=== PATIENT | male | born 1990 | race Caucasian/White ===

== ENCOUNTER 2017-08-30 07:23 | Emergency (ER) | payer BC ==
[2017-08-30] MEDS ORDERED: Morphine 2 MG/ML Syringe IVPUSH ONE (07:50)
[2017-08-30] MEDS ORDERED: Ketorolac 30 MG/ML SDV IVPUSH ONE (07:50)
[2017-08-30] MEDS ORDERED: Piperacillin/Tazobactam 3.375 GM in Sodium Chloride 0.9% 50 ML IV ONE (07:51)
[2017-08-30] MEDS ORDERED: Sodium Chloride 0.9% 2.5 ML Syringe FLUSH PRN (07:51)
[2017-08-30] MEDS ORDERED: Sodium Chloride 0.9% 10 ML Syringe FLUSH PRN (07:51)
--- NOTE | 2017-08-30 07:55 | EDM.PDOC ---
ED HPI GENERAL MEDICAL PROBLEM - General Chief Complaint: Back Pain or Injury Stated Complaint: LOWER BACK PAIN Time Seen by Provider: 08/30/17 07:31 - History of Present Illness INITIAL COMMENTS - FREE TEXT/NARRATIVE: HISTORY AND PHYSICAL: History of present illness: The patient is a 26-year-old male with no stated medical problems who presents with a 2 day history of fullness and pain at his tailbone area. The patient denies any trauma to the area and has not had any drainage has been having no bowel or bladder disturbances. He's had no systemic complaints of fever chills abdominal pain or testicular pain. Patient tells me that in the past he had a "cyst" in that same area but it went away without seeking medical treatment and he's never had problems since that time until this episode. He's eating and drinking normally and does not have a local provider. He says he's been using [id number] medications for pain and he presents more for the pain and pain management today. Review of systems: As per history of present illness and below otherwise all systems reviewed and negative. Past medical history: As per history of present illness and as reviewed below otherwise noncontributory. Surgical history: As per history of present illness and as reviewed below otherwise noncontributory. Social history: No reported history of drug or alcohol abuse. Family history: As per history of present illness and as reviewed below otherwise noncontributory. Physical exam: General: Well-developed well-nourished overweight male who is uncomfortable sitting in the ED and prefers to stand or lay on his abdomen as he says it's excruciatingly painful to sit on his butt. He is nontoxic appearing HEENT: Atraumatic, normocephalic, negative for conjunctival pallor or scleral icterus, mucous membranes moist, throat clear, neck supple, nontender, trachea midline. Lungs: Clear to auscultation, breath sounds equal bilaterally, chest nontender. Heart: S1S2, regular rate and rhythm no overt murmurs Abdomen: Soft, nondistended, nontender. NABS Pelvis: Stable nontender. Genitourinary: Deferred. Rectal: See below Extremities: Atraumatic, negative for cords or calf pain. Neurovascular unremarkable. Neuro: Awake, alert, oriented. Cranial nerves II through XII unremarkable. Cerebellum unremarkable. Motor and sensory unremarkable throughout. Exam nonfocal. Back: There are no midline step-offs tenderness defects of the cervical thoracic or lumbar spine and no soft tissue swelling or paraspinal tenderness is appreciated. As the distal sacrum there is a 10 x 10 area of bilateral erythema and warmth that originates from the distal sacrum and coccyx area and extends bilaterally. Does extend toward the anus but does not seem to violate the anal verge and the patient has good rectal tone. There is mostly induration in this area and no gross fluctuance. There is discrete tenderness in this region. Diagnostics: CBC CMP blood cultures Therapeutics: Toradol Zosyn 0900: This case was discussed with our surgeon Dr. Arguelles. He is currently finishing another case in the operating room and will come and evaluate the patient. He is aware of the WBC count and the physical findings. He would like me to refrain from doing any imaging until he sees the patient. His also made aware of this plan. 0930: Dr. Arguelles is here seeing the patient and he will do a formal consult. He is aware of the white cell count and has examined the patient himself and would like the patient to be placed on Keflex 500 mg every 6 hours for 10 days, pain medication, [id number] stool softeners and he will see the patient in his clinic in 7-10 days. At that point he can reevaluate the patient for formal excision as indicated. The patient is aware of this plan and is comfortable with it. He was also advised that if he starts having documented fevers or gets worse that he should return to the ER. I've given the patient a thermometer so that he can check his temperature at home if he feels feverish or chilly. Impression: Pilonidal cyst/abscess/cellulitis Definitive disposition and diagnosis as appropriate pending reevaluation and review of above. Lower Back Pain Score (Numeric/FACES): 10 - Related Data Allergies Allergy/AdvReac Type Severity Reaction Status Date / Time sulfamethoxazole Allergy Hives Verified 08/30/17 07:33 [From Bactrim] trimethoprim [From Bactrim] Allergy Hives Verified 08/30/17 07:33 Home Meds: Home Meds . [No Known Home Meds] 07/02/16 [History] Past Medical History - Past Health History Medical/Surgical History: Denies Medical/Surgical History Cardiovascular History: Reports: None Respiratory History: Reports: None Gastrointestinal History: Reports: None Genitourinary History: Reports: None Neurological History: Reports: None Endocrine/Metabolic History: Reports: None Hematologic History: Reports: None Immunologic History: Reports: None Dermatologic History: Reports: None - Infectious Disease History Infectious Disease History: Reports: None - Past Surgical History Cardiovascular Surgical History: Reports: None Musculoskeletal Surgical History: Reports: Other (See Below) Dermatological Surgical History: Reports: Skin Graft Social & Family History - Family History Family Medical History: Noncontributory - Tobacco Use Smoking Status *Q: Current Every Day Smoker Years of Tobacco use: 10 Packs/Tins Daily: 1.5 - Alcohol Use Days Per Week of Alcohol Use: 1 Number of Drinks Per Day: 6 Total Drinks Per Week: 6 - Recreational Drug Use Recreational Drug Use: Yes Drug Use in Last 12 Months: Yes Recreational Drug Type: Reports: Marijuana/Hashish Recreational Drug Use Frequency: Socially ED ROS GENERAL - Review of Systems Review Of Systems: ROS reveals no pertinent complaints other than HPI. ED EXAM, GENERAL - Physical Exam Exam: See Below (See dictation) Course - Vital Signs Last Recorded V/S: Last Vital Signs Temp 36.2 C 08/30/17 07:29 Pulse 78 08/30/17 09:21 Resp 16 08/30/17 09:21 BP 113/68 08/30/17 09:21 Pulse Ox 98 08/30/17 09:21 - Orders/Labs/Meds Orders: Active Orders 24 hr Category Date Time Status Notify Provider Consults [RC] ASDIRECTED Care 08/30/17 09:36 Ordered Consult to Physician [CONS] Stat Cons 08/30/17 09:36 Ordered CULTURE BLOOD [BC] Stat Lab 08/30/17 08:10 Received CULTURE BLOOD [BC] Stat Lab 08/30/17 08:18 Received Sodium Chloride 0.9% [Saline Flush] Med 08/30/17 07:51 Active 10 ml FLUSH ASDIRECTED PRN Sodium Chloride 0.9% [Saline Flush] Med 08/30/17 07:51 Active 2.5 ml FLUSH ASDIRECTED PRN Blood Culture x2 Reflex Set [OM.PC] Stat Oth 08/30/17 07:55 Ordered Saline Lock Insert [OM.PC] Stat Oth 08/30/17 07:49 Ordered Medication Orders Sodium Chloride (Saline Flush) 10 ml FLUSH ASDIRECTED PRN PRN Reason: Keep Vein Open Last Admin: 08/30/17 08:13 Dose: 10 ml Sodium Chloride (Saline Flush) 2.5 ml FLUSH ASDIRECTED PRN PRN Reason: Keep Vein Open Last Admin: 08/30/17 08:13 Dose: 2.5 ml Labs: Laboratory Tests 08/30/17 08/30/17 Range/Units 08:10 08:10 WBC 20.09 H (4.0-11.0) K/uL RBC 4.64 (4.50-5.90) M/uL Hgb 13.7 (13.0-17.0) g/dL Hct 40.4 (38.0-50.0) % MCV 87.1 (80.0-98.0) fL MCH 29.5 (27.0-32.0) pg MCHC 33.9 (31.0-37.0) g/dL RDW Std Deviation 42.0 (28.0-62.0) fl RDW Coeff of Maik 13 (11.0-15.0) % Plt Count 157 (150-400) K/uL MPV 10.00 (7.40-12.00) fL Neut % (Auto) 76.0 (48.0-80.0) % Lymph % (Auto) 11.5 L (16.0-40.0) % [place] % (Auto) 11.6 (0.0-15.0) % Eos % (Auto) 0.7 (0.0-7.0) % Baso % (Auto) 0.2 (0.0-1.5) % Neut # (Auto) 15.3 H (1.4-5.7) K/uL Lymph # (Auto) 2.3 (0.6-2.4) K/uL [place] # (Auto) 2.3 H (0.0-0.8) K/uL Eos # (Auto) 0.1 (0.0-0.7) K/uL Baso # (Auto) 0.0 (0.0-0.1) K/uL Nucleated RBC % 0.0 /100WBC Nucleated RBCs # 0 K/uL Sodium 138 (136-146) mmol/L Potassium 4.2 (3.5-5.1) mmol/L Chloride 109 (98-110) mmol/L Carbon Dioxide 22 (21-31) mmol/L BUN 12 (6.0-23.0) mg/dL Creatinine 0.7 (0.6-1.5) mg/dL Est Cr Clr Drug Dosing 172.44 mL/min Estimated GFR (MDRD) > 60.0 ml/min Glucose 113 H (60-110) mg/dL Calcium 9.3 (8.8-10.8) mg/dL Total Bilirubin 0.3 (0.1-1.5) mg/dL AST 40 (5-40) IU/L ALT 51 (8-54) IU/L Alkaline Phosphatase 91 (40-150) Total Protein 7.2 (6.0-8.0) g/dL Albumin 4.0 (3.5-5.0) g/dL Globulin 3.2 (2.0-3.5) g/dL Albumin/Globulin Ratio 1.3 (1.3-2.8) Meds: Medications Generic Name Dose Route Start Last Admin Trade Name Freq PRN Reason Stop Dose Admin Sodium Chloride 10 ml 08/30/17 07:51 08/30/17 08:13 Saline Flush FLUSH 10 ml ASDIRECTED PRN Administration Keep Vein Open Sodium Chloride 2.5 ml 08/30/17 07:51 08/30/17 08:13 Saline Flush FLUSH 2.5 ml ASDIRECTED PRN Administration Keep Vein Open Discontinued Medications Generic Name Dose Route Start Last Admin Trade Name Freq PRN Reason Stop Dose Admin Piperacillin Sod/Tazobactam 50 mls @ 100 mls/hr 08/30/17 07:51 08/30/17 08:27 Sod 3.375 gm/ Sodium Chloride IV 08/30/17 08:20 100 mls/hr ONETIME ONE Administration Ketorolac Tromethamine 30 mg 08/30/17 07:50 08/30/17 08:13 Toradol IVPUSH 08/30/17 07:51 30 mg ONETIME ONE Administration Morphine Sulfate 4 mg 08/30/17 07:50 08/30/17 08:13 Morphine IVPUSH 08/30/17 07:51 4 mg ONETIME ONE Administration Departure - Departure Time of Disposition: 09:39 Disposition: Home, Self-Care 01 Condition: Good Clinical Impression: Infected pilonidal cyst - Discharge Information Referrals: PCP,None [Primary Care Provider] - Forms: ED Department Discharge Additional Instructions: The following information is given to patients seen in the emergency department who are being discharged to home. This information is to outline your options for follow-up care. We provide all patients seen in our emergency department with a follow-up referral. The need for follow-up, as well as the timing and circumstances, are variable depending upon the specifics of your emergency department visit. If you don't have a primary care physician on staff, we will provide you with a referral. We always advise you to contact your personal physician following an emergency department visit to inform them of the circumstance of the visit and for follow-up with them and/or the need for any referrals to a consulting specialist. The emergency department will also refer you to a specialist when appropriate. This referral assures that you have the opportunity for followup care with a specialist. All of these measure are taken in an effort to provide you with optimal care, which includes your followup. Under all circumstances we always encourage you to contact your private physician who remains a resource for coordinating your care. When calling for followup care, please make the office aware that this follow-up is from your recent emergency room visit. If for any reason you are refused follow-up, please contact the [facility] emergency department at and ask to speak to the emergency department charge nurse. [facility] Professional Building [address] [place] [id number] Please take all medications as prescribed and take [id number] Colace twice a day per the package directions and also start taking MiraLAX 1 dose every day to help improve constipation and the bowel movements. Remember that the pain medications you have been prescribed here will make you more constipated. You can also do [id number]-[id number] Tylenol or ibuprofen during the day as you cannot drive or go to work on the stronger pain meds. Please return to ER as needed and as you have been directed by Dr. Arguelles in the ER. - My Orders Last 24 Hours: My Active Orders 08/30/17 07:49 Saline Lock Insert [OM.PC] Stat 08/30/17 07:51 Sodium Chloride 0.9% [Saline Flush] 10 ml FLUSH ASDIRECTED PRN Sodium Chloride 0.9% [Saline Flush] 2.5 ml FLUSH ASDIRECTED PRN 08/30/17 07:55 Blood Culture x2 Reflex Set [OM.PC] Stat 08/30/17 08:10 CULTURE BLOOD [BC] Stat 08/30/17 08:18 CULTURE BLOOD [BC] Stat 08/30/17 09:36 Notify Provider Consults [RC] ASDIRECTED Consult to Physician [CONS] Stat - Assessment/Plan Last 24 Hours: My Active Orders 08/30/17 07:49 Saline Lock Insert [OM.PC] Stat 08/30/17 07:51 Sodium Chloride 0.9% [Saline Flush] 10 ml FLUSH ASDIRECTED PRN Sodium Chloride 0.9% [Saline Flush] 2.5 ml FLUSH ASDIRECTED PRN 08/30/17 07:55 Blood Culture x2 Reflex Set [OM.PC] Stat 08/30/17 08:10 CULTURE BLOOD [BC] Stat 08/30/17 08:18 CULTURE BLOOD [BC] Stat 08/30/17 09:36 Notify Provider Consults [RC] ASDIRECTED Consult to Physician [CONS] Stat
[2017-08-30 08:50] LABS: CHLORIDE,CL 109 mmol/L (98-110); SODIUM,NA 138 mmol/L (136-146)
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
[2017-08-30 10:05] VITALS: BP 128/79
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
== END 2017-08-30 10:01 | disposition home or self-care (01) ==
LOC: MW.ED 07:23
DX: L05.01 Pilonidal cyst with abscess (principal); F17.210 Nicotine dependence, cigarettes, uncomplicated; Z88.1 Allergy status to other antibiotic agents; Z88.2 Allergy status to sulfonamides
CPT/HCPCS: 36415; 80053; 85025; 87040; 96365; 96375; 99284; J1885; J2270; J2543; J7050; 99283

== ENCOUNTER 2017-12-07 09:04 | Emergency (ER) | payer BC ==
--- NOTE | 2017-12-07 09:25 | EDM.PDOC ---
ED HPI GENERAL MEDICAL PROBLEM - General Chief Complaint: Back Pain or Injury Stated Complaint: BACK PAIN Time Seen by Provider: 12/07/17 09:24 Source of Information: Reports: Patient - History of Present Illness INITIAL COMMENTS - FREE TEXT/NARRATIVE: HISTORY AND PHYSICAL: History of present illness: [Patient presents with low back pain for 2 weeks he rates 6 out of 10 radiating down the left leg, worsened by prolonged standing at her request and was sitting Injury occurred 2 weeks prior as he was taking his dog out of the home/ apartment building the dog and the leash became entangled from the patient's legs dragging him down the steps he describes as skipping on his heels down several steps he did not actually fall He has had increasing symptoms over the last 2 weeks he is scheduled to see his primary care on Saturday of next week No nausea vomiting chills sweats no chest pain shortness breath headache dizziness palpitation no bowel or urine symptoms no footdrop or saddle anesthesia No head injury or loss of consciousness ] Review of systems: As per history of present illness and below otherwise all systems reviewed and negative. Past medical history: As per history of present illness and as reviewed below otherwise noncontributory. Surgical history: As per history of present illness and as reviewed below otherwise noncontributory. Social history: No reported history of drug or alcohol abuse. Family history: As per history of present illness and as reviewed below otherwise noncontributory. Physical exam: HEENT: Atraumatic, normocephalic, pupils reactive, negative for conjunctival pallor or scleral icterus, mucous membranes moist, throat clear, neck supple, nontender, trachea midline. Lungs: Clear to auscultation, breath sounds equal bilaterally, chest nontender. Heart: S1S2, regular, negative for clicks, rubs, or JVD. Abdomen: Soft, nondistended, nontender. Negative for masses or hepatosplenomegaly. Negative for costovertebral tenderness. Pelvis: Stable nontender. Genitourinary: Deferred. Rectal: Deferred. Extremities: Atraumatic, negative for cords or calf pain. Neurovascular unremarkable. Neuro: Awake, alert, oriented. Cranial nerves II through XII unremarkable. Cerebellum unremarkable. Motor and sensory unremarkable throughout. Exam nonfocal. Diagnostics: [Lumbar spine plain films ] Therapeutics: []Cataflam 50 mg by mouth 3 times a day when necessary #30 no refill Flexeril 20 pound weight limit Follow-up with primary care as scheduled on Saturday Orthopedic follow-up on Saturday ER referral, for consideration of back brace Impression: [Low back pain Pars defect Left sciatic distribution pain ] Definitive disposition and diagnosis as appropriate pending reevaluation and review of above. back pain Pain Score (Numeric/FACES): 5 - Related Data Allergies Allergy/AdvReac Type Severity Reaction Status Date / Time sulfamethoxazole Allergy Hives Verified 12/07/17 09:13 [From Bactrim] trimethoprim [From Bactrim] Allergy Hives Verified 12/07/17 09:13 Home Meds: Home Meds . [No Known Home Meds] 07/02/16 [History] Past Medical History - Past Health History Medical/Surgical History: Denies Medical/Surgical History Cardiovascular History: Reports: None Respiratory History: Reports: None Gastrointestinal History: Reports: None Genitourinary History: Reports: None Neurological History: Reports: None Endocrine/Metabolic History: Reports: None Hematologic History: Reports: None Immunologic History: Reports: None Dermatologic History: Reports: None - Infectious Disease History Infectious Disease History: Reports: None - Past Surgical History Cardiovascular Surgical History: Reports: None Dermatological Surgical History: Reports: Skin Graft Social & Family History - Family History Family Medical History: Noncontributory - Tobacco Use Smoking Status *Q: Current Every Day Smoker Years of Tobacco use: 10 Packs/Tins Daily: 1 - Alcohol Use Days Per Week of Alcohol Use: 1 Number of Drinks Per Day: 6 Total Drinks Per Week: 6 - Recreational Drug Use Recreational Drug Use: No Drug Use in Last 12 Months: Yes Recreational Drug Type: Reports: Marijuana/Hashish Recreational Drug Use Frequency: Socially ED ROS GENERAL - Review of Systems Review Of Systems: ROS reveals no pertinent complaints other than HPI. ED EXAM, GENERAL - Physical Exam Exam: See Below Course - Vital Signs Last Recorded V/S: Last Vital Signs Temp 98.0 F 12/07/17 09:17 Pulse 100 12/07/17 09:17 Resp 18 12/07/17 09:17 BP 157/91 H 12/07/17 09:17 Pulse Ox 96 12/07/17 09:17 - Orders/Labs/Meds Orders: Active Orders 24 hr Category Date Time Status Lumbar Spine 2 or 3V [CR] Stat Exams 12/07/17 09:24 Taken Departure - Departure Time of Disposition: 10:23 Disposition: Home, Self-Care 01 Condition: Good Clinical Impression: Low back pain, Pars defect of lumbar spine - Discharge Information Referrals: Be Soliman MD [Primary Care Provider] - Forms: ED Department Discharge Additional Instructions: Medication as prescribed Return if symptoms persist or worsen ER referral for orthopedic evaluation for consideration of a back brace secondary to pars defect on L5 Integument with primary care appointment on Saturday 20 pound weight limit [facility] [address], [address] [place] [address] my orthopedic The following information is given to patients seen in the emergency department who are being discharged to home. This information is to outline your options for follow-up care. We provide all patients seen in our emergency department with a follow-up referral. The need for follow-up, as well as the timing and circumstances, are variable depending upon the specifics of your emergency department visit. If you don't have a primary care physician on staff, we will provide you with a referral. We always advise you to contact your personal physician following an emergency department visit to inform them of the circumstance of the visit and for follow-up with them and/or the need for any referrals to a consulting specialist. The emergency department will also refer you to a specialist when appropriate. This referral assures that you have the opportunity for follow-up care with a specialist. All of these measure are taken in an effort to provide you with optimal care, which includes your follow-up. Under all circumstances we always encourage you to contact your private physician who remains a resource for coordinating your care. When calling for follow-up care, please make the office aware that this follow-up is from your recent emergency room visit. If for any reason you are refused follow-up, please contact the [facility] emergency department at and asked to speak to the emergency department charge nurse. - My Orders Last 24 Hours: My Active Orders 12/07/17 09:24 Lumbar Spine 2 or 3V [CR] Stat - Assessment/Plan Last 24 Hours: My Active Orders 12/07/17 09:24 Lumbar Spine 2 or 3V [CR] Stat
[2017-12-07 10:34] VITALS: BP 138/93
--- NOTE | 2017-12-09 17:08 | CR ---
EXAM DATE: 12/07/17 PATIENT'S AGE: 27 Patient: NOA NINA Facility: [place], [place] Site . Site : 1990 Study: XRay Spine Lumbar [id number] 9:53:17 AM Ordering Physician: Jerome Ibanez Final Report: INDICATION: lbp, twisting injury FINDINGS: Three views of the lumbar spine show mild anterolisthesis of L5 on S1 which is likely due to bilateral pars interarticularis defects at L5. There is otherwise normal height and alignment of the lumbar vertebral bodies. No evidence of acute fracture or dislocation. No other bony or soft tissue abnormalities identified. Dictated by Jose C Sahu MD @ 12/07/2017 10:05:08 AM Dictated by: Jose C Sahu MD @ 12/07/2017 10:05:16 (Electronic Signature) Report Signed by Proxy. DARNELL
== END 2017-12-07 10:37 | disposition home or self-care (01) ==
LOC: MW.ED 09:04
DX: M43.06 Spondylolysis, lumbar region (principal); M54.42 Lumbago with sciatica, left side; F17.210 Nicotine dependence, cigarettes, uncomplicated; Z88.1 Allergy status to other antibiotic agents; Z88.2 Allergy status to sulfonamides
CPT/HCPCS: 72100; 72100-26; 99283

== ENCOUNTER 2018-03-04 12:08 | Day surgery (SDC) | payer BC ==
[2018-03-04] MEDS ORDERED: Ropivacaine 0.5% 5 MG/ML 30 ML SDV ONE (14:28)
[2018-03-04] MEDS ORDERED: Betamethasone Acetate/Betamethasone Sod Phosphate 30 MG/5 ML MDV ONE (14:28)
[2018-03-04] MEDS ORDERED: Lidocaine 2% 5 ML SDV ONE (14:28)
[2018-03-04] MEDS ORDERED: Iopamidol 408 MG/ML 50 ML SDV ONE (14:28)
--- NOTE | 2018-03-04 15:33 | OR ---
SURGEON: Reny Franco D.O. DATE OF PROCEDURE: 03/04/2018 OR STAFF PRESENT: 1. Greg Jacobson RN. 2. Helene Mccray RN. 3. RT Gopi. WOUND CLASSIFICATION: I. PREOPERATIVE DIAGNOSES: 1. Lumbar degenerative disk disease. 2. Lumbar spondylolisthesis at L5-S1. 3. Chronic low back pain. 4. Left S1 radiculopathy. POSTOPERATIVE DIAGNOSES: 1. Lumbar degenerative disk disease. 2. Lumbar spondylolisthesis at L5-S1. 3. Chronic low back pain. 4. Left S1 radiculopathy. PROCEDURES PERFORMED: 1. Left S1 transforaminal epidural steroid injection. 2. Fluoroscopic guidance for needle placement. 3. Local with oral Valium for sedation. SCREENING QUESTIONS: The patient answered "no" to all of the following questions: 1. Are you allergic to iodine, Betadine or latex? 2. Do you have a bleeding disorder? 3. Do you have any joint replacements, heart valve replacements, or a pacemaker? 4. Are you allergic to anti-inflammatories or blood thinners? 5. Do you have any current local or systemic infections? MEDICAL NECESSITY: This is a patient with a history of chronic low back pain and lower extremity radicular pain in the above dermatomal pattern that comes in for the above diagnostic and therapeutic procedure. Pertinent positives and negatives for this suspected disease process along with the diagnostic findings and testing are in the patient's history and physical exam. The most salient feature includes radicular pain in the above dermatomal pattern. The patient had failed attempts at conservative therapy including physical therapy, nonsteroidal anti- inflammatory drugs, and other medications. No contraindications to perform this procedure including medical, no bleeding disorders or infections, no psychological, no antisocial personality disorder or active addiction disorder. There are no work-related issues, and, in general, the patient does not have any history of multiple prior interventions, surgeries or nerve blocks which have failed to return the patient to function. The patient's other symptoms to be treated include numbness, paresthesia, dysesthesia or hypoesthesia referred into the left lower extremity or any weakness in the involved myotome. This procedure is being performed in accordance with national guidelines as written by the International Sp[employer] Intervention Society (SHARMIN). DESCRIPTION OF PROCEDURE: The patient had the procedure thoroughly explained including risks, benefits and alternatives. Consent was signed in my clinic indicating understanding and willingness to proceed. The patient presented to [facility] [place] where the patient was escorted to the dressing room to disrobe and change into a hospital gown. Preoperative vital signs were taken and stable. The patient reported that Valium was taken prior to the procedure. The patient was brought to the procedure room and placed in the prone position on the table. A pillow was placed under the abdomen in order to flatten the lumbar lordosis. The back was prepped with ChloraPrep and sterilely draped. All personnel in the operating room were dressed in appropriate attire including surgical scrubs, head and shoe covers. This was to ensure sterility while in the treatment room. During the time fluoroscopy was in use, all personnel in the operating room wore lead chance with thyroid collars. Sterile technique was used during the procedure. The fluoroscope was placed for the left S1 transforaminal epidural steroid injection. There was no sign of infection at the skin site for needle insertion. The skin was anesthetized with 2% lidocaine with a 27 gauge 1-1/2 inch needle. Then, a 22 gauge 3-1/2 inch spinal needle, advanced to the left S1. Under direct fluoroscopic guidance needle position was verified in three views; AP, oblique and lateral, with 0.2 cubic centimeters increments of Isovue-200 dye. No intravascular flow pattern was observed under live fluoroscopy. Then 12 milligrams of Celestone was slowly injected after negative aspiration of heme, cerebrospinal fluid and no paresthesias were noted. The needle was cleared prior to removal from the skin. No adverse reactions were noted. The patient was brought to the recovery room awake and in good condition by my staff. The patient was monitored and discharge instructions were given after a brief stay in the recovery area. Both oral and written discharge and follow up instructions were given. The patient will follow up in the clinic in 3-4 weeks post procedure to evaluate the efficacy. The patient verbalized understanding including understanding of those signs and symptoms that would require emergency care and knows how to contact the office if there are any problems or questions in the meantime. PREOPERATIVE PAIN: /10. POSTOPERATIVE PAIN: 10/30. PLAN: Follow up in the Pain Clinic in 3 weeks. LARISA / DA /[id number]
== END 2018-03-04 14:07 ==
LOC: MW.SDS 12:08
PROVIDERS: ATTEND Anesthesiology
DX: G89.29 Other chronic pain (principal); M51.36 Other intervertebral disc degeneration, lumbar region; M54.18 Radiculopathy, sacral and sacrococcygeal region; M43.17 Spondylolisthesis, lumbosacral region; M48.062 Spinal stenosis, lumbar region with neurogenic claudication; M54.5 Low back pain; M79.1 Myalgia; F17.210 Nicotine dependence, cigarettes, uncomplicated; Z88.1 Allergy status to other antibiotic agents; Z88.2 Allergy status to sulfonamides
CPT/HCPCS: 64483; J0702; J2795; Q9966